=== PATIENT | female | born 1950 | race Caucasian/White ===

== ENCOUNTER 2019-06-26 06:25 | Day surgery (SDC) | payer MEDICARE, BC ==
[2019-06-25 10:25] VITALS: BMI 17.4
[~2019-06-26 06:25] MED LIST: Fluorouracil 100 MG, Enoxaparin Sodium 25 MG, EPINEPHrine 0.3 MG in Ophthalmic Irrigati... IRR SCH
[2019-06-26] MEDS ORDERED: Fentanyl 100 MCG/2 ML VIAL ONE (06:57)
[2019-06-26] MEDS ORDERED: Midazolam HCl 2 mg/2 ml Vial ONE (06:57)
[2019-06-26] MEDS ORDERED: Cyclopentolate 1% Opth Drop 2 ML BOT ONE (07:00)
[2019-06-26] MEDS ORDERED: Phenylephrine 2.5% Ophth Soln 5 ML BOT ONE (07:00)
[2019-06-26] MEDS ORDERED: Lidocaine 1% PF 5 ML VIAL ONE (10:17)
[2019-06-26] MEDS ORDERED: Triamcinolone 40 MG/ML VIAL ONE (10:17)
[2019-06-26] MEDS ORDERED: Bupivacaine PF 0.75% SDV 10 ML ONE (10:17)
[2019-06-26] MEDS ORDERED: PROPOFOL 200 MG/20 ML VIAL ONE (10:17)
[2019-06-26] MEDS ORDERED: Indocyanine Green 25 MG/10 ML VIAL ONE (10:17)
[2019-06-26] MEDS ORDERED: CEFAZOLIN 1 GM VIAL ONE (10:17)
[2019-06-26] MEDS ORDERED: Lidocaine 4% PF 5 ML AMP ONE (10:17)
[2019-06-26] MEDS ORDERED: Maxitrol 0.1% Opth Oint 3.5 GM TUBE ONE (10:17)
[2019-06-26] MEDS ORDERED: Enoxaparin Sodium 30 MG/0.3 ML SYRINGE ONE (10:17)
--- NOTE | 2019-06-30 13:18 | OP ---
DATE OF PROCEDURE: 06/26/2019 PREOPERATIVE DIAGNOSIS: Epiretinal membrane, left eye. POSTOPERATIVE DIAGNOSIS: Epiretinal membrane, left eye. PROCEDURE PERFORMED: left eye. PROCEDURE IN DETAIL: A lid speculum was placed in the left eye. A 27-gauge trocar was placed in the conjunctiva and sclera superotemporally, inferotemporally, and supranasally. Infusion line was placed inferotemporally. Light pipe and vitreous cutter were inserted into the eye. Core vitrectomy was performed. Indocyanine green dye was infused on the posterior pole x2, identifying the epiretinal membrane. The internal limiting membrane was elevated and peeled across the macula using end gripping forceps. Indirect ophthalmoscopy was used to examine the retina 360 degrees. No holes, breaks, or tears were identified. Prophylactic laser placed behind the sclerotomy sites. Trocars removed. Eye was noted to retain pressure well. Retrobulbar Kenalog and subconjunctival Ancef were placed. Antibiotic ointment placed. Eye was patched and shielded. The patient was taken to postoperative recovery unit in good condition, having suffered no immediate perioperative complications. The patient was instructed to keep patch and shield on, avoid lifting or bending, followup appointment with Dr. Valencia. Job ID: [id number]
== END 2019-06-26 09:15 | disposition home or self-care (01) ==
LOC: SDC 06:25
PROVIDERS: ATTEND Ophthalmology Retina Specialist
PROC: 08T53ZZ Resection of Left Vitreous, Percutaneous Approach (ICD-10-PCS; principal; 2019-06-26)
PROC: 08NF3ZZ Release Left Retina, Percutaneous Approach (ICD-10-PCS; 2019-06-26)
DX: H35.372 Puckering of macula, left eye (principal); Z79.899 Other long term (current) drug therapy; Z88.4 Allergy status to anesthetic agent
CPT/HCPCS: J0171; J0690; J1650; J2001; J2250; J2704; J3010; J3301; J3490; J9190